=== PATIENT | female | born 1980 | race American Indian/Alaskan Native ===

== ENCOUNTER 2021-09-08 11:58 | Emergency (ER) | payer SELFPAY ==
[2021-09-08] MEDS ORDERED: dexAMETHasone 20 MG/5 ML VIAL IM ONE (15:59)
[2021-09-08] MEDS ORDERED: KETOROLAC 30 MG/1 ML INJ IM ONE (15:59)
--- NOTE | 2021-09-08 16:28 | Emergency Department Report ---
ED Back Pain/Injury HPI - General Chief Complaint: Back Pain/Injury Stated Complaint: PULLED MUSCLE LOWER BACK Source: patient Limitations: No Limitations - History of Present Illness Initial Comments: 40-year-old female presents to the ED complaining of back pain x4 days. Patient states that she was lifting some heavy box approximately 30 pounds when she felt a pull in her back. Patient states that pain is radiating down her left leg. Patient denies any dysuria, IV, fever ,chills any steroid use. Patient denies taking any prior medication to prior to arrival. Patient is alert and oriented x3. No acute distress noted. no ill appearance noted. MD Complaint: back pain Similar Symptoms Previously: No Place: work Radiation: none Severity: mild Severity scale (0 -10): 10 Quality: dull Consistency: intermittent Improves With: none, movement Worsens With: movement Context: while lifting Associated Symptoms: denies other symptoms - Related Data Previous Rx's Medication Instructions Recorded Last Taken Type Cyclobenzaprine [Flexeril] 10 mg PO TID PRN 15 Days #30 tab 09/08/21 Unknown Rx Naproxen [Naprosyn] 500 mg PO BID 15 Days #30 tablet 09/08/21 Unknown Rx predniSONE [Deltasone] 50 mg PO QDAY 3 Days #3 tab 09/08/21 Unknown Rx Allergies Allergy/AdvReac Type Severity Reaction Status Date / Time Penicillins Allergy Unknown Verified 09/08/21 13:18 ED Review of Systems ROS: Stated complaint: PULLED MUSCLE LOWER BACK Other details as noted in HPI Constitutional: denies: chills, fever Eyes: denies: eye pain, eye discharge, vision change ENT: denies: ear pain, throat pain Respiratory: denies: cough, shortness of breath, wheezing Cardiovascular: denies: chest pain, palpitations Endocrine: no symptoms reported Gastrointestinal: denies: abdominal pain, nausea, diarrhea Genitourinary: denies: urgency, dysuria, discharge Musculoskeletal: back pain. denies: joint swelling, arthralgia Skin: denies: rash, lesions Neurological: denies: headache, weakness, paresthesias Psychiatric: denies: anxiety, depression Hematological/Lymphatic: denies: easy bleeding, easy bruising ED Past Medical Hx - Medications Home Medications: Home Medications Medication Instructions Recorded Confirmed Last Taken Type Cyclobenzaprine [Flexeril] 10 mg PO TID PRN 15 Days #30 tab 09/08/21 Unknown Rx Naproxen [Naprosyn] 500 mg PO BID 15 Days #30 tablet 09/08/21 Unknown Rx predniSONE [Deltasone] 50 mg PO QDAY 3 Days #3 tab 09/08/21 Unknown Rx ED Physical Exam - General Limitations: No Limitations General appearance: alert, in no apparent distress - Head Head exam: Present: atraumatic, normocephalic - Eye Eye exam: Present: normal appearance - ENT ENT exam: Present: mucous membranes moist - Neck Neck exam: Present: normal inspection - Respiratory Respiratory exam: Present: normal lung sounds bilaterally. Absent: respiratory distress - Cardiovascular Cardiovascular Exam: Present: regular rate, normal rhythm. Absent: systolic murmur, diastolic murmur, rubs, gallop - GI/Abdominal GI/Abdominal exam: Present: soft, normal bowel sounds - Extremities Exam Extremities exam: Present: normal inspection - Back Exam Back exam: Present: normal inspection - Neurological Exam Neurological exam: Present: alert, oriented X3 - Psychiatric Psychiatric exam: Present: normal affect, normal mood - Skin Skin exam: Present: warm, dry, intact, normal color. Absent: rash ED Course Vital Signs 09/08/21 13:19 Temperature 98.2 F Pulse Rate 73 Respiratory 16 Rate Blood Pressure 117/76 [Left] O2 Sat by Pulse 100 Oximetry ED Medical Decision Making - Medical Decision Making 40-year-old female presents to the ED complaining of back pain x4 days. Patient states that she was lifting some heavy box approximately 30 pounds when she felt a pull in her back. Patient states that pain is radiating down her left leg. Patient denies any dysuria, IV, fever ,chills any steroid use. Patient denies taking any prior medication to prior to arrival. Patient is alert and oriented x3. No acute distress noted. no ill appearance noted. Patient states pain is a current 10 out of 10. Physical examination is unremarkable straight leg tests positive left leg for sciatica. Patient given Toradol 30 mg and Decadron 10 mg IV IM in the ED. Rechecked the patient is resting quietly quietly and comfortable and feeling better. I discussed the results of diagnostic study, my clinical impression and the plan for further treatment with the patient. Patient agrees with plan and discharge at this present time. All question addressed. I have given the patient instruction regarding a diagnosis ,expectation ,follow- up and return precaution. I explained to the patient that emergent condition may arise and to return to the ED for new worsen and any new persisting condition. I have explained the importance of following up with the primary care physician or referral physician listed below has instructed. The patient verbalized understanding of discharge instruction. Critical care attestation.: If time is entered above; I have spent that time in minutes in the direct care of this critically ill patient, excluding procedure time. ED Disposition Clinical Impression: Low back pain Qualifiers: Chronicity: acute Back pain laterality: bilateral Sciatica presence: with sciatica Sciatica laterality: sciatica of left side Qualified Code(s): M54.42 - Lumbago with sciatica, left side Disposition: HOME / SELF CARE / HOMELESS Is pt being admited?: No Does the pt Need Aspirin: No Condition: Stable Instructions: Back Exercises, [id number], Sciatica, [id number], Acute Back Pain, Adult Additional Instructions: Take medication as prescribed Return to the ED for any worsening symptoms Prescriptions: predniSONE [Deltasone] 50 mg PO QDAY 3 Days #3 tab Cyclobenzaprine [Flexeril] 10 mg PO TID PRN 15 Days #30 tab PRN Reason: Muscle Spasm Naproxen [Naprosyn] 500 mg PO BID 15 Days #30 tablet Referrals: JAMES CURRY MD [Staff Physician] - 3-5 Days Time of Disposition: 16:34
[2021-09-08 16:56] VITALS: BP 121/73
== END 2021-09-08 16:55 | disposition home or self-care (01) ==
LOC: ED 11:58
DX: M54.50 Low back pain, unspecified (principal); Z88.0 Allergy status to penicillin
CPT/HCPCS: 96372; 99282; J1100; J1885